=== PATIENT | male | born 1975 | race Caucasian/White ===

== ENCOUNTER 2022-04-17 05:55 | Day surgery (SDC) | payer BC ==
[2022-04-17] MEDS ORDERED: Lactated Ringers 1,000 ML IV SCH (06:00)
[2022-04-17] MEDS ORDERED: DIPRIVAN 200 MG/20 ML IV ONE ×2 (07:21→07:49)
[2022-04-17] MEDS ORDERED: Versed 2 MG/2 ML Injection ONE (07:23)
[2022-04-17 08:58] VITALS: O2SAT 99
[2022-04-17 09:02] VITALS: BP 132/84; PULSE 64
--- NOTE | 2022-04-17 11:10 | OP ---
SURGERY DATE: 04/17/2022 SURGERY TIME: 723 PREOPERATIVE DIAGNOSIS: 1. FAMILY HISTORY OF COLON CANCER. POSTOPERATIVE DIAGNOSIS: 1. ASCENDING COLON POLYP. PROCEDURE: 1. Colonoscopy. SURGEON: Dr. John Russell. ANESTHESIA: MAC by Dell Bacon CRNA. SPECIMENS: 1. Cold forceps polypectomy from the ascending colon. ESTIMATED BLOOD LOSS: Minimal. DESCRIPTION OF PROCEDURE: After informed written consent was obtained, the patient was taken to the endoscopy suite. Anesthesia was titrated to the desired level of consciousness. Then, a digital rectal exam showed normal sphincter tone and no internal lesions. The scope was then inserted in the rectum and sequentially the entire colonic mucosa was traversed. The level of the cecum was reached and verified with direct visualization of the ileocecal valve. There was a small sessile polyp in the ascending colon which was grasped with the forceps and removed in its entirety with minimal blood loss. No other lesions were encountered. Prior to withdrawal, retroflexion was performed which showed no internal lesions. The scope was removed and the patient was transferred to the recovery room in good condition. He will follow-up in a week for pathology results.
== END 2022-04-17 08:55 | disposition home or self-care (01) ==
LOC: SDC 05:55
PROVIDERS: ATTEND Family Medicine
DX: K63.5 Polyp of colon (principal); Z80.0 Family history of malignant neoplasm of digestive organs
CPT/HCPCS: J2250; J2704